=== PATIENT | female | born 1980 | race Caucasian/White ===

== ENCOUNTER 2018-03-04 06:16 | Emergency (ER) | payer BC ==
[2018-03-04 06:24] VITALS: BMI 27.4
--- NOTE | 2018-03-04 06:41 | PDOC ---
History of Present Illness <Tobi Levine - Last Filed: 03/04/18 13:32> - History of Present Illness Initial Comments: 03/04/18 06:34 This 38-year-old woman with no significant past medical history presents with a several hour history of inability to urinate. Patient was awakened about 4 AM with feeling of fullness in her bladder; she attempted to urinate but only passed a few "dribbles". She denies hematuria/dysuria/nausea or fever. Patient states that she "normally" urinates frequently and in small amounts. No history of urinary tract infection or kidney stones. No previous history of urinary retention requiring catheterization however the past several months she has had difficulty initially urinating just prior to onset of menstruation. Patient believes that her menstrual period is due either this weekend (in 5 days or next week). <Deb Gillespie - Last Filed: 03/05/18 20:12> - General Chief Complaint: Urinary Problem Stated Complaint: UNABLE TO URINATE SINCE 4AM Time Seen by Provider: 03/04/18 06:19 Past History <Tobi Levine - Last Filed: 03/04/18 13:32> - Past Medical History COPD: No Other medical history: ANXIETY/DEPRESSION - Suicide/Smoking/Psychosocial Hx Smoking History: Never smoked Have you smoked in the past 12 months: No Information on smoking cessation initiated: No Hx Alcohol Use: Yes (OCCAS) Drug/Substance Use Hx: No Substance Use Type: None <Deb Gillespie - Last Filed: 03/05/18 20:12> - Past Medical History Allergies/Adverse Reactions: Allergies Allergy/AdvReac Type Severity Reaction Status Date / Time sulfur [From Sulfur-8] Allergy Verified 03/04/18 06:18 Home Medications: Ambulatory Orders Escitalopram Oxalate [Lexapro -] 20 mg PO DAILY 03/04/18 Review of Systems - Review of Systems Able to Perform ROS?: Yes Comments:: 12 point review of systems is negative except for what is noted in the history of present illness <Deb Gillespie - Last Filed: 03/05/18 20:12> *Physical Exam - Vital Signs Last Vital Signs Temp Pulse Resp BP Pulse Ox 98 F 60 16 113/78 100 03/04/18 06:20 03/04/18 06:20 03/04/18 06:20 03/04/18 06:20 03/04/18 06:20 <Tobi Levine - Last Filed: 03/04/18 13:32> - Vital Signs Last Vital Signs Temp Pulse Resp BP Pulse Ox 98 F 60 16 113/78 100 03/04/18 06:20 03/04/18 06:20 03/04/18 06:20 03/04/18 06:20 03/04/18 06:20 - Physical Exam Comments: GENERAL: Adult female, alert and oriented 3, in mild distress secondary to lower abdominal distention/urinary retention HEAD: Normal with no signs of trauma. EYES: PERRLA, EOMI, sclera anicteric, conjunctiva clear. ENT: Ears normal, nares patent, oropharynx clear without exudates. Moist mucous membranes. NECK: Normal range of motion, supple without lymphadenopathy, JVD, or masses. LUNGS: Breath sounds equal, clear to auscultation bilaterally. No wheezes, and no crackles. HEART:Regular rate and rhythm, normal S1 and S2 without murmur, rub or gallop. ABDOMEN:.normal bowel sounds No guarding or rebound.No masses. Mild lower abdominal distention/mild tenderness EXTREMITIES: Normal range of motion, no edema. No clubbing or cyanosis. No erythema, or tenderness. NEUROLOGICAL: Cranial nerves II through XII grossly intact. Normal speech. No focal neurological deficits. MUSCULOSKELETAL: Back non-tender to palpation, no CVA tenderness SKIN: Warm, Dry, normal turgor, no rashes or lesions noted. <Deb Gillespie - Last Filed: 03/05/18 20:12> ED Treatment Course - ADDITIONAL ORDERS Additional order review: Laboratory Results 03/04/18 03/04/18 08:19 07:36 Urine Color Ltyellow Urine Appearance Clear Urine pH 5.0 Ur Specific Hellier 1.015 Urine Protein Negative Urine Glucose (UA) Negative Urine Ketones Negative Urine Blood Negative Urine Nitrite Negative Urine Bilirubin Negative Urine Urobilinogen Negative Ur Leukocyte Esterase Negative Urine HCG, Qual Negative - RADIOLOGY Radiology Studies Ordered: Category Date Time Status LUMBAR SPINE MRI W/O CONTRAST [MRI] Stat MRI 03/04/18 08:33 Ordered <Tobi Levine - Last Filed: 03/04/18 13:32> Progress Note - Progress Note Progress Note: 16 [place] [employer]as catheter placed by nursing staff: 650 mL of clear yellow urine obtained. Sample sent for UA/PGU/urine culture and sensitivity. Because of volume is greater than 600 mL, catheter will be kept in place with leg bag and patient will follow-up with urologist. Urinalysis/PGU/urine C&S pending. Patient is comfortable. Care of this patient signed out to incoming physician at end of shift <Deb Gillespie - Last Filed: 03/05/18 20:12> Medical Decision Making - Medical Decision Making 03/04/18 08:55 Picked up patient this morning upon arrival. Seen during the night with urinary retention, residual of [address]. Patient's symptoms of urgency and suprapubic pressure are resolved and she is comfortable Further history obtained of herniated disc approximately 2 years ago in the lumbosacral spine, as well as scoliosis. MRI 2 years ago, no subsequent evaluation. One episode of urinary retention in December which resolved spontaneously without treatment. Acute recurrent chest today. No other etiology suggested by history. No anticholinergic medication. No vaginal symptoms. Although unlikely, acute disc herniation with cauda equina syndrome, or initial presentation of MS are possibilities. Phone consultation was obtained with neurologist, Dr. Newman. He agreed that MRI was indicated. If no acute surgical emergency, he will see the patient later today in his office and arrange further neurologic and urologic testing. <Tobi Levine - Last Filed: 03/04/18 13:32> *DC/Admit/Observation/Transfer - Discharge Dispostion Admit: No <Tobi Levine - Last Filed: 03/04/18 13:32> <Deb Gillespie - Last Filed: 03/05/18 20:12> Diagnosis at time of Disposition: Urinary retention - Discharge Dispostion Disposition: HOME Condition at time of disposition: Stable - Referrals Referrals: Jeb Ramachandran MD [Staff Physician] - Vikram Newman MD [Staff Physician] - - Patient Instructions Printed Discharge Instructions: DI for Urinary Retention in Women Additional Instructions: Call Dr. Ramachandran, who is a urologist, and arrange follow-up within 48 hours Call , who is a neurologist, for an appointment as soon as possible. He has been informed of your condition and is aware of your problem. If there is further difficulty urinating once the catheter is removed, return to the emergency room. - Post Discharge Activity Forms/Work/School Notes: Back to Work
[2018-03-04 08:20] LABS: URINE APPEARANCE CLEAR; URINE BILIRUBIN NEGATIVE (<2.0 mg/dL); URINE BLOOD NEGATIVE (NEGATIVE); URINE COLOR LTYELLOW; URINE GLUCOSE (UA) NEGATIVE (NEGATIVE); URINE KETONE NEGATIVE (NEGATIVE); URINE LEUK ESTERASE NEGATIVE (NEGATIVE); URINE NITRITE NEGATIVE (NEGATIVE); URINE PROTEIN NEGATIVE (NEGATIVE); URINE UROBILINOGEN NEGATIVE mg/dL (0.2-1.0)
[2018-03-04 13:44] VITALS: BP 101/66; PULSE 76; TEMP 98.3
== END 2018-03-04 13:44 | disposition home or self-care (01) ==
LOC: FER 06:16
PROC: 0T9B70Z Drainage of Bladder with Drainage Device, Via Natural or Artificial Opening (ICD-10-PCS; principal; 2018-03-04)
DX: R33.9 Retention of urine, unspecified (principal)
CPT/HCPCS: 72148-TC; 81003; 84703; 87086; 99283-25